=== PATIENT | female | born 1930 | race Caucasian/White ===

== ENCOUNTER 2018-06-06 06:59 | Inpatient (IN) | payer MEDICARE, OTHER ==
[2018-06-06] MEDS: SODIUM CHLORIDE 0.9% 1L BAG IV* (07:31)
[2018-06-06] MEDS: CEFEPIME 2GM/50 ML (PMX) 50 ML IVPB (07:31)
[2018-06-06 07:34] LABS: ADD MAN DIFF? NO
[2018-06-06 07:41] LABS: ABNORMAL IP MESSAGE 1; BASOPHILS % 0.4 % (0.0-2.0); EOSINOPHILS # 0.2 10^3/ul (0.0-0.5); HEMATOCRIT 35.3 % (37.0-47.0); HEMOGLOBIN 11.2 g/dl (12.0-16.0); LYMPHOCYTES # 1.5 10^3/ul (0.8-2.9); LYMPHOCYTES % 30.4 % (15.0-51.0); MEAN CORPUSCULAR HEMOGLOBIN 29.6 pg (29.0-33.0); MEAN CORPUSCULAR HGB CONC 31.7 g/dl (32.0-37.0); MEAN CORPUSCULAR VOLUME 93.4 fl (82.0-101.0); MEAN PLATELET VOLUME 10.9 fl (7.4-10.4); MONOCYTE # 0.6 10^3/ul (0.3-0.9); MONOCYTES % 12.6 % (0.0-11.0); NEUTROPHIL # 2.6 10^3/ul (1.6-7.5); NEUTROPHILS % 52.2 % (39.0-77.0); PLATELET COUNT 97 10^3/UL (140-415); RED BLOOD COUNT 3.78 10^6/ul (4.20-5.40); RED CELL DISTRIBUTION WIDTH 13.2 % (11.5-14.5)
[2018-06-06] MEDS: VANCOMYCIN 1 GM (PMX) 250 ML IVPB (07:49)
[2018-06-06 07:53] LABS: POSITIVE DIFF @See below
[2018-06-06 07:58] LABS: ANION GAP 8 (8-16); BLOOD UREA NITROGEN 11 mg/dl (7-20); CALCIUM 8.6 mg/dl (8.4-10.2); CARBON DIOXIDE 25 mmol/L (21-31); CHLORIDE 112 mmol/L (97-110); CREATININE 0.48 mg/dl (0.44-1.00); GLUCOSE 110 mg/dl (70-220); POTASSIUM 4.1 mmol/L (3.5-5.1); SODIUM 141 mmol/L (135-144)
[2018-06-06 07:59] LABS: LACTIC ACID 1.1 mmol/L (0.5-2.0)
[2018-06-06 08:00] LABS: INR 0.96; PROTIME 12.9 Sec (11.9-14.9)
[2018-06-06 08:01] LABS: PARTIAL THROMBOPLASTIN TIME 30.1 Sec (23.0-35.0)
[2018-06-06 08:11] LABS: TROPONIN-I 0.015 ng/ml (0.000-0.120)
[2018-06-06 09:12] LABS: ADD UMIC YES; UR ASCORBIC ACID NEGATIVE (NEGATIVE); UR BACTERIA FEW /HPF (NONE SEEN); UR BILIRUBIN (Dip) NEGATIVE (NEGATIVE); UR BLOOD (Dip) 1+ mg/dL (NEGATIVE); UR CLARITY CLEAR (CLEAR); UR COLOR YELLOW (YELLOW); UR GLUCOSE (Dip) NEGATIVE (NEGATIVE); UR KETONES (Dip) NEGATIVE (NEGATIVE); UR LEUKOCYTE ESTERASE (Dip) NEGATIVE Leu/ul (NEGATIVE); UR NITRITE (Dip) NEGATIVE (NEGATIVE); UR RBC 2 /HPF (0-5); UR SPECIFIC GRAVITY (Dip) 1.019 (1.003-1.030); UR TOTAL PROTEIN (Dip) NEGATIVE (NEGATIVE); UR UROBILINOGEN (Dip) 2+ mg/dL (NEGATIVE); UR WBC 1 /HPF (0-5)
[2018-06-06] MEDS ORDERED: ACETAMINOPHEN 325 MG TAB PO ×2 (09:30→12:00)
[2018-06-06] MEDS ORDERED: ONDANSETRON 4 MG INJ IV ×2 (09:30→12:00)
[2018-06-06 09:57] LABS: LACTIC ACID 0.9 mmol/L (0.5-2.0)
[2018-06-06] MEDS ORDERED: NACL 0.9% 3 ML SYG IV (12:00)
[2018-06-06] MEDS ORDERED: morphine 2 MG INJ IV (12:00)
[2018-06-06] MEDS ORDERED: DOCUSATE SODIUM 100 MG CAP PO (12:00)
[2018-06-06] MEDS ORDERED: MELOXICAM 7.5 MG TAB PO (12:00)
[2018-06-06] MEDS ORDERED: HYDROCODONE/APAP (5/325) TAB PO (12:00)
[2018-06-06 12:12] LABS: LACTIC ACID 1.3 mmol/L (0.5-2.0)
[2018-06-06] MEDS ORDERED: PENDING SANTYL ORDER FOR WOUND CARE XX (12:30)
[2018-06-06] MEDS: DONEPEZIL 5 MG TAB PO (13:13)
[2018-06-06] MEDS: CITALOPRAM 20 MG TAB PO (13:13)
[2018-06-06] MEDS: MELOXICAM 15 MG TAB PO (13:13)
[2018-06-06] MEDS: ASPIRIN 81 MG TAB PO (13:13)
[2018-06-06] MEDS: FAMOTIDINE 20 MG INJ IV ×2 (13:14→22:42)
[2018-06-06] MEDS: DEXTROSE 5%-0.45% NACL 1,000 ML IV (13:15)
[2018-06-06] MEDS: FUROSEMIDE 40 MG TAB PO (13:58)
[2018-06-06] MEDS: LORAZEPAM 1 MG TAB PO (18:14)
[2018-06-07] MEDS: DEXTROSE 5%-0.45% NACL 1,000 ML IV ×2 (00:45→03:52)
[2018-06-07] MEDS: LORAZEPAM 1 MG TAB PO ×2 (01:06→15:40)
[2018-06-07] MEDS ORDERED: VANCOMYCIN IV PER PHARMACY XX (04:00)
[2018-06-07 05:29] LABS: ADD MAN DIFF? NO
[2018-06-07 05:36] LABS: BASOPHILS % 0.8 % (0.0-2.0); EOSINOPHILS # 0.2 10^3/ul (0.0-0.5); EOSINOPHILS % 5.2 % (0.0-7.0); HEMATOCRIT 35.2 % (37.0-47.0); LYMPHOCYTES # 1.3 10^3/ul (0.8-2.9); MEAN CORPUSCULAR HEMOGLOBIN 29.6 pg (29.0-33.0); MEAN CORPUSCULAR HGB CONC 31.3 g/dl (32.0-37.0); MEAN CORPUSCULAR VOLUME 94.9 fl (82.0-101.0); MEAN PLATELET VOLUME 10.9 fl (7.4-10.4); MONOCYTE # 0.3 10^3/ul (0.3-0.9); MONOCYTES % 8.4 % (0.0-11.0); NEUTROPHILS % 51.3 % (39.0-77.0); PLATELET COUNT 102 10^3/UL (140-415); RED BLOOD COUNT 3.71 10^6/ul (4.20-5.40); RED CELL DISTRIBUTION WIDTH 13.2 % (11.5-14.5)
[2018-06-07 05:36] LABS: WHITE BLOOD COUNT 3.8 10^3/ul (4.8-10.8)
[2018-06-07 06:19] LABS: ALANINE AMINOTRANSFERASE 25 IU/L (13-69); ALBUMIN 2.7 g/dl (3.3-4.9); ALKALINE PHOSPHATASE 57 IU/L (42-121); ANION GAP 11 (8-16); ASPARTATE AMINO TRANSFERASE 23 IU/L (15-46); BILIRUBIN,INDIRECT 0.4 mg/dl (0-1.1); BILIRUBIN,TOTAL 0.4 mg/dl (0.2-1.3); BLOOD UREA NITROGEN 8 mg/dl (7-20); CALCIUM 8.8 mg/dl (8.4-10.2); CARBON DIOXIDE 28 mmol/L (21-31); CHLORIDE 107 mmol/L (97-110); CREATININE 0.48 mg/dl (0.44-1.00); GLUCOSE 89 mg/dl (70-220); PHOSPHORUS 3.2 mg/dl (2.5-4.9); POTASSIUM 3.6 mmol/L (3.5-5.1); SODIUM 142 mmol/L (135-144); TOTAL PROTEIN 5.7 g/dl (6.1-8.1)
[2018-06-07] MEDS: VANCOMYCIN 1.5 GM in SOD CHLORIDE 0.9% 250 ML IVPB (06:52)
[2018-06-07] MEDS: LEVOTHYROXINE 75 MCG TAB PO (06:54)
[2018-06-07] MEDS: PANTOPRAZOLE (EC) 40 MG TAB PO (06:54)
[2018-06-07 08:34] LABS: HEMOGLOBIN A1C 5.3 % (0-5.9)
[2018-06-07] MEDS: FAMOTIDINE 20 MG INJ IV ×2 (09:05→20:53)
[2018-06-07] MEDS: DONEPEZIL 5 MG TAB PO (09:05)
[2018-06-07] MEDS: ASPIRIN 81 MG TAB PO (09:05)
[2018-06-07] MEDS: CITALOPRAM 20 MG TAB PO (09:06)
[2018-06-07] MEDS: MELOXICAM 15 MG TAB PO (09:07)
[2018-06-07] MEDS: FUROSEMIDE 40 MG TAB PO (09:07)
[2018-06-07] MEDS: CEFEPIME 1GM/50 ML (PMX) 50 ML IVPB ×2 (10:39→20:53)
[2018-06-08] MEDS: VANCOMYCIN 1.25 GM in SOD CHLORIDE 0.9% 250 ML IVPB (06:01)
[2018-06-08] MEDS: LEVOTHYROXINE 75 MCG TAB PO (06:03)
[2018-06-08] MEDS: PANTOPRAZOLE (EC) 40 MG TAB PO (06:03)
[2018-06-08 07:47] LABS: ADD MAN DIFF? NO
[2018-06-08 07:51] LABS: WHITE BLOOD COUNT 3.9 10^3/ul (4.8-10.8)
[2018-06-08 07:51] LABS: BASOPHILS % 0.8 % (0.0-2.0); EOSINOPHILS # 0.2 10^3/ul (0.0-0.5); EOSINOPHILS % 4.9 % (0.0-7.0); HEMATOCRIT 33.6 % (37.0-47.0); HEMOGLOBIN 10.6 g/dl (12.0-16.0); LYMPHOCYTES # 1.2 10^3/ul (0.8-2.9); LYMPHOCYTES % 31.6 % (15.0-51.0); MEAN CORPUSCULAR HEMOGLOBIN 29.7 pg (29.0-33.0); MEAN CORPUSCULAR HGB CONC 31.5 g/dl (32.0-37.0); MEAN CORPUSCULAR VOLUME 94.1 fl (82.0-101.0); MEAN PLATELET VOLUME 10.7 fl (7.4-10.4); MONOCYTE # 0.4 10^3/ul (0.3-0.9); MONOCYTES % 9.3 % (0.0-11.0); NEUTROPHIL # 2.1 10^3/ul (1.6-7.5); NEUTROPHILS % 53.1 % (39.0-77.0); PLATELET COUNT 115 10^3/UL (140-415); RED BLOOD COUNT 3.57 10^6/ul (4.20-5.40); RED CELL DISTRIBUTION WIDTH 13.2 % (11.5-14.5)
[2018-06-08 08:08] LABS: INR 0.92; PROTIME 12.4 Sec (11.9-14.9)
[2018-06-08 08:09] LABS: PARTIAL THROMBOPLASTIN TIME 29.8 Sec (23.0-35.0)
[2018-06-08 08:20] LABS: ALANINE AMINOTRANSFERASE 15 IU/L (13-69); ALBUMIN 2.9 g/dl (3.3-4.9); ALBUMIN/GLOBULIN RATIO 1.03; ALKALINE PHOSPHATASE 55 IU/L (42-121); ANION GAP 9 (8-16); ASPARTATE AMINO TRANSFERASE 24 IU/L (15-46); BILIRUBIN,INDIRECT 0.2 mg/dl (0-1.1); BILIRUBIN,TOTAL 0.2 mg/dl (0.2-1.3); BLOOD UREA NITROGEN 9 mg/dl (7-20); CALCIUM 8.5 mg/dl (8.4-10.2); CARBON DIOXIDE 25 mmol/L (21-31); CHLORIDE 110 mmol/L (97-110); CREATININE 0.51 mg/dl (0.44-1.00); GLUCOSE 92 mg/dl (70-220); POTASSIUM 4.2 mmol/L (3.5-5.1); SODIUM 140 mmol/L (135-144); TOTAL PROTEIN 5.7 g/dl (6.1-8.1)
[2018-06-08] MEDS: FAMOTIDINE 20 MG INJ IV ×2 (08:38→20:08)
[2018-06-08] MEDS: MELOXICAM 15 MG TAB PO (08:39)
[2018-06-08] MEDS: DONEPEZIL 5 MG TAB PO (08:39)
[2018-06-08] MEDS: FUROSEMIDE 40 MG TAB PO (08:39)
[2018-06-08] MEDS: ASPIRIN 81 MG TAB PO (08:39)
[2018-06-08] MEDS: CITALOPRAM 20 MG TAB PO (08:40)
[2018-06-08] MEDS: CEFEPIME 1GM/50 ML (PMX) 50 ML IVPB (08:43)
[2018-06-08] MEDS: MEROPENEM 1 GM/50ML(PMX) 50 ML IVPB ×2 (12:29→20:08)
[2018-06-08] MEDS: LIDOCAINE 1% (MPF) 5 ML VIAL SC (14:41)
[2018-06-08] MEDS: SOD CHLORIDE 0.9% 100 ML (15:00)
[2018-06-08] MEDS: LATANOPROST 0.005% 2.5 ML OPH BOTH EYES (20:08)
[2018-06-09] MEDS: LORAZEPAM 1 MG TAB PO (00:55)
[2018-06-09] MEDS: VANCOMYCIN 1.25 GM in SOD CHLORIDE 0.9% 250 ML IVPB (05:39)
[2018-06-09] MEDS: PANTOPRAZOLE (EC) 40 MG TAB PO ×2 (05:40→05:46)
[2018-06-09] MEDS: LEVOTHYROXINE 75 MCG TAB PO ×2 (05:57→09:03)
[2018-06-09 07:15] LABS: VANCOMYCIN,TROUGH 8.5 ug/ml (10.0-20.0)
[2018-06-09] MEDS: FAMOTIDINE 20 MG INJ IV (09:02)
[2018-06-09] MEDS: FUROSEMIDE 40 MG TAB PO (09:02)
[2018-06-09] MEDS: ASPIRIN 81 MG TAB PO (09:02)
[2018-06-09] MEDS: MELOXICAM 15 MG TAB PO (09:02)
[2018-06-09] MEDS: DONEPEZIL 5 MG TAB PO (09:03)
[2018-06-09] MEDS: CITALOPRAM 20 MG TAB PO (09:03)
[2018-06-09] MEDS: MEROPENEM 1 GM/50ML(PMX) 50 ML IVPB (09:10)
[2018-06-09] MEDS: ERTAPENEM SODIUM 0.5 GM in SOD CHLORIDE 0.9% 100 ML IVPB (14:37)
== END 2018-06-09 16:20 | DRG 640 ==
LOC: E/R 06:59 → 2NE 09:02
PROC: 02HV33Z Insertion of Infusion Device into Superior Vena Cava, Percutaneous Approach (ICD-10-PCS; principal; 2018-06-08)
PROC: B548ZZA Ultrasonography of Superior Vena Cava, Guidance (ICD-10-PCS; 2018-06-08)
DX: E86.0 Dehydration (principal); G93.41 Metabolic encephalopathy; N39.0 Urinary tract infection, site not specified; R78.81 Bacteremia; F05 Delirium due to known physiological condition; L89.90 Pressure ulcer of unspecified site, unspecified stage; G30.9 Alzheimer's disease, unspecified; F02.80 Dementia in other diseases classified elsewhere, unspecified severity, without behavioral disturbance, psychotic disturbance, mood disturbance, and anxiety; I10 Essential (primary) hypertension; E78.5 Hyperlipidemia, unspecified; B96.20 Unspecified Escherichia coli [E. coli] as the cause of diseases classified elsewhere; Z79.82 Long term (current) use of aspirin; Z95.2 Presence of prosthetic heart valve
CPT/HCPCS: 36415; 36569; 71045; 76937; 80048; 80053; 80202; 81001; 83036; 83605; 83735; 84100; 84484; 85025; 85610; 85730; 87040; 87081; 87086; 92610; 93005; 96365; 96375; 97110; 97162; 97530; 99285-25